=== PATIENT | female | born 2000 | race Caucasian/White ===

== ENCOUNTER 2019-06-23 08:14 | Observation (INO) | payer OTHER, SELFPAY ==
[2019-06-23] VITALS (9 sets, daily range): BP systolic 105–120; BP diastolic 64–83; PULSE 72–91; RESP 16–18; TEMP 36.2–36.6; O2SAT 96–100; BMI 29.7
--- NOTE | ~2019-06-23 | CT_ITS ---
EXAMINATION: CT pelvis w con INDICATION: Right lower quadrant pain, possible appendicitis TECHNIQUE: Computed tomographic images of the pelvis were obtained after the administration of 100 cc of Omnipaque 350 intravenous contrast. The dose-length product (DLP) was 278.36 mGy-cm. Automated ex posure control and iterative reconstruction technique were employed. COMPARISON: 06/23/2019 FINDINGS: The appendix measures up to 8 mm, not significantly changed since the comparison examinatio n. There is a trace amount of fluid near the tip of the appendix which could reflect inflammation or be physiologic in a reproductive age female. There are no dilated loops of bowel. No pathologically e nlarged pelvic lymph nodes are identified. IMPRESSION: 1. Findings equivocal for acute appendicitis. Reviewed, dictated and finalized at location A.
--- NOTE | ~2019-06-23 | CT_ITS ---
EXAMINATION: CT abdomen pelvis w con INDICATION: Right lower quadrant pain TECHNIQUE: Computed tomographic images of the abdomen and pelvis were obtained after the administrati on of 100 cc of Omnipaque 350 intravenous contrast. The dose-length product (DLP) was 352.09 mGy-cm. Automated exposure control and iterative reconstruction technique were employed. COMPARISON: None available FINDINGS: The lung bases are clear. The heart size is normal. The liver, spleen, pancreas, gallbladde r, and adrenal glands are normal. The kidneys are unremarkable. No pathologically enlarged abdominal or pelvic lymph nodes are identified. There is no free intraperitoneal gas or evidence of bowel obstr uction. The appendix measures approximately 8 mm at the base. No periappendiceal fat stranding is mike ntified. There is no periappendiceal fluid or abscess. The visualized osseous structures are unremark able. IMPRESSION: 1. Mild enlargement at the base of the appendix without identifiable periappendiceal fat stranding. F indings could reflect very early acute appendicitis. Reviewed, dictated and finalized at location B. IMPRESSION: 1. Mild enlargement at the base of the appendix without identifiable periappend iceal fat stranding. Findings could reflect very early acute appendicitis.
[2019-06-23 08:37] LABS: Basophils Percent Auto 0.3 % (0.2-1.2); Eosinophils Absolute Auto 0.1 K/mm3 (0-0.3); Eosinophils Percent Auto 0.8 % (0-4.4); Immature Granulocyte Absolute 0.04 K/mm3 (0.00-0.031); Immature Granulocyte Percent A 0.3 % (0-0.5); Lymphocytes Absolute Auto 3.16 K/mm3 (0.9-3.2); Mean Corpuscular HGB Conc 34.1 g/dl (32-36); Mean Corpuscular Hemoglobin 30.4 pg (26-34); Mean Corpuscular Volume 89.1 fl (80-100); Mean Platelet Volume 10.3 fl (7.4-10.4); Monocytes Absolute Auto 0.9 K/mm3 (0.1-0.6); Monocytes Percent Auto 7.8 % (2.6-8.5); Neutrophils Absolute Auto 7.5 K/mm3 (1.3-6.7); Neutrophils Percent Auto 63.8 % (45.5-73.1); Platelet Count Result 328 k/mm3 (150-375); Red Cell Distribution Width 11.9 % (11.5-14.5); White Blood Count 11.7 K/mm3 (4.5-10.0)
--- NOTE | 2019-06-23 08:40 | ED.ABDPAIN ---
HPI - Abdominal Pain General Chief Complaint: Abdominal Pain Stated Complaint: abd pain Time Seen by Provider: 06/23/19 08:20 History of Present Illness HPI narrative: 19 yo female w/ h/o HSV presents c/o RLQ pain since about 5 AM. The pain is cramp-like. No radiation. Moderate in intensity. Associated with 1 episodes of nausea, no vomiting. She is currently on her period, but states that this does not feel like normal menstrual cramps to her. No fever, diarrhea, constipation, previous surgery. Related Data Home Medications Medication Instructions Recorded Confirmed bupropion HCl [Wellbutrin XL] 150 mg PO QAM 06/23/19 06/23/19 valacyclovir 500 mg PO DAILY 06/23/19 06/23/19 Allergies Allergy/AdvReac Type Severity Reaction Status Date / Time Sulfa (Sulfonamide Allergy Mild migraine Verified 12/28/17 18:45 Antibiotics) and fever Review of Systems Review of Systems: All systems reviewed & are unremarkable except as noted in HPI and below Constitutional: Constitutional: Denies fever(s) Eyes: Eyes: Reports no additional eye complaints ENT: Reports system reviewed and no additional complaints, except as documented Cardiovascular: Cardiovascular: Denies chest pain Respiratory: Respiratory: Denies cough and Denies dyspnea Gastrointestinal: Gastrointestinal: Reports abdominal pain, Denies constipation, Denies diarrhea, Reports nausea and Denies vomiting Genitourinary: Genitourinary: Denies hematuria and Denies dysuria Musculoskeletal: Musculoskeletal: Denies back pain Neurologic: Denies dizziness and Denies weakness PMFSH Past Medical History Medical History (Updated 06/23/19 @ 12:15 by Alex Cameron MD) HSV infection Family History Family History (Updated 06/23/19 @ 12:02 by Eliana Enriquez RN) Father Diabetes mellitus Hypertension Social History Social History (Updated 06/23/19 @ 08:51 by Alex Cameron MD) Smoking status: Former smoker Tobacco type: e-cigarettes Alcohol intake: former Substance use: former Substance use type: marijuana Gender identity (if verbalized by the patient): Female Spiritual care concerns: No Agree to blood products: No Exam Const: General: healthy appearing, no acute distress and alert Nutritional Appearance: well nourished Orientation/consciousness: patient oriented x3 Limitations: no limitations HENMT: Head: normal to inspection Resp: Effort & Inspection: normal respiratory effort Auscultation: clear to auscultation bilaterally Cardio: Rate: regular rate Rhythm: regular rhythm GI: GI Palp: Yes Soft to palpation, Yes Tenderness to palpation present (GI) (Mild RLQ tenderness), No Guarding due to palpation present (GI) and No Rebound tenderness present Skin: General skin exam: normal color Rashes: no rashes Neuro: General: patient oriented x3 and moves all extremities Speech: normal speech Extrem: General: normal to inspection Psych: Appearance: grossly normal Mental Status: mental status grossly normal Affect: normal affect Thought content: Yes Normal thought content present Course Vital Signs Vital signs: Vital Signs Temperature 36.6 C 06/23/19 08:20 Pulse Rate 83 06/23/19 08:20 Respiratory Rate 16 06/23/19 08:20 Blood Pressure 113/83 06/23/19 08:20 Pulse Oximetry 100 06/23/19 08:20 Temperature 36.3 C L 06/23/19 11:59 Pulse Rate 89 06/23/19 11:59 Respiratory Rate 16 06/23/19 11:59 Blood Pressure 120/64 06/23/19 11:59 Pulse Oximetry 100 06/23/19 11:59 MDM - Abdominal Pain MDM Narrative Medical decision making narrative: She has relatively mild pain in the RLQ with minimal tenderness and no peritoneal signs. I feel appendicitis is unlikely. Will await lab results and reassess. Wbcs mildly elevated. Pain greatly improved, but continues to have RLQ tenderness. CT ordered. CT equivocal for appendicitis. Case discussed with Dr. Figueroa. He feels that observation or disc
[2019-06-23 08:44] LABS: Add Urine Microscopic? YES; Appearance Urine Clear (Clear); Bacteria Urine Trace /hpf; Bilirubin Urine Negative (Negative); Blood Urine 3+ (Negative); Color Urine Yellow (Yellow); Glucose Urine UA Negative (Negative); Ketones Urine Negative (Negative); Leukocyte Esterase Ur Negative LEU/UL (Negative); Mucus Urine Few /lpf; Nitrate Urine Negative (Negative); Protein Urine 1+ mg/dL (Negative); RBC Urine 0-2 /hpf (0-2); Specific Grav Ur 1.015 (1.001-1.035); Squamous Epithelial Cell Urine Many /hpf (Few); Urobilinogen Urine Negative mg/dL (<2.0)
[2019-06-23 08:52] LABS: Alanine Aminotransferase 10 U/L (4-35); Albumin Level 4.5 g/dL (3.5-5.1); Alkaline Phosphatase 28 U/L (38-126); Aspartate Amino Transferase 19 U/L (14-36); Bilirubin,Total 0.4 mg/dL (0.2-1.3); Blood Urea Nitrogen 8 mg/dL (7-17); Calcium 9.4 mg/dL (8.4-10.2); Carbon Dioxide 28 mmol/L (22-30); Chloride 105 mmol/L (98-107); Estimated CRCL calculation 88 ml/min; Estimated Glomerular Filt Rate > 60; Glucose 88 mg/dL (65-105); Lipase 62 U/L (23-300); Potassium 3.4 mmol/L (3.4-5.0); Sodium 140 mmol/L (137-145)
[2019-06-23] MEDS: KETOROLAC 30 MG/ML VIAL (*BKC) IV PUSH (08:52)
--- NOTE | 2019-06-23 09:36 | PC.NURSE ---
PT IN CT AT THIS TIME.
--- NOTE | 2019-06-23 11:34 | PC.NURSE ---
This patient, Alta Figueroa, was admitted to Medical Room 242-01. Patient/family oriented to hospital policies and general routines including ID bracelet, bed and alarms, visiting hours, pain management, procedures, bathroom and other care routines, personal items, smoking policy, room service/diet, and visiting hours. Valuables list has been completed. Information on how to activate the Rapid Response Team has been discussed. Patient/Family are encouraged to report perceived risks to care and to ask questions if they do not understand what they are told or what they should do.
[2019-06-23] MEDS: LACTATED RINGERS 1,000 ML 125 ML IV CONT (11:52)
--- NOTE | 2019-06-23 15:21 | PM.IMHP ---
H&P: HPI History of Present Illness Chief complaint: Possible appendicitis Narrative: Alta Figueroa is a 19 year old female with states that she was feeling in good health until early this morning. She states that she woke up out of sleep at around 5:00 a.m. with some right lower quadrant abdominal pain. She laid back down until 8:00 a.m. but had increasing pain so got up and moved around. She did not have anything to eat this morning before she came to the hospital. Workup in the emergency room showed that she had a slightly elevated white count and a CT scan showing a equivocal signs of appendicitis with the slightly dilated appendix more at the base and its tip. No other specific explanations for the abdominal pain. She is admitted now as an observation patient to serve for possibility of appendicitis. Review of Systems Constitutional: Constitutional: Reports as per HPI and Denies headache(s) Eyes: Eyes: Denies loss of vision and Denies eye pain ENT: Reports Normal hearing present, Denies change in voice, Denies dizziness and Denies headache(s) Cardiovascular: Cardiovascular: Denies chest pain and Denies dyspnea Respiratory: Respiratory: Denies dyspnea and Denies wheezing Gastrointestinal: Gastrointestinal: Reports abdominal pain, Denies diarrhea, Denies loose stools, Reports nausea and Denies vomiting Comments: Patient's typical pattern a bowel movements is 1 day or every other day. Genitourinary: Genitourinary: Denies sexual dysfunction Comments: Patient has been having somewhat irregular periods lately occurring every 3 weeks instead of the every 4. Typical daysof flow 5-6. Patient currently having her menstrual period. Musculoskeletal: Musculoskeletal: Denies back pain and Denies arthralgias Neurologic: Reports Normal hearing present, Denies dizziness, Denies headache(s), Denies loss of vision and Denies memory loss Psychiatric: Psychiatric: Denies memory loss and Denies panic attacks Endocrine: Endocrine: Reports no additional endocrine complaints Hematologic/Lymphatic: Hematologic/Lymphatic: Reports no additional hematologic/lymphatic complaints Allergic/Immunologic: Allergic/Immunologic: Denies wheezing PMFSH Past Medical History Medical History (Updated 06/23/19 @ 15:33 by Francis Figueroa MD) HSV infection Family History Family History (Updated 06/23/19 @ 12:02 by Eliana Enriquez RN) Father Diabetes mellitus Hypertension Social History Social History (Updated 06/23/19 @ 08:51 by Alex Cameron MD) Smoking status: Former smoker Tobacco type: e-cigarettes Alcohol intake: former Substance use: former Substance use type: marijuana Gender identity (if verbalized by the patient): Female Spiritual care concerns: No Agree to blood products: No Meds Home Medications and Allergies Home Medications Medication Instructions Recorded Confirmed Type bupropion HCl [Wellbutrin XL] 150 mg PO QAM 06/23/19 06/23/19 History valacyclovir 500 mg PO DAILY 06/23/19 06/23/19 History Allergies Allergy/AdvReac Type Severity Reaction Status Date / Time Sulfa (Sulfonamide Allergy Mild migraine Verified 12/28/17 18:45 Antibiotics) and fever Vital Signs Vital Signs - 24 hr 06/23/19 08:20 06/23/19 08:34 06/23/19 09:20 Temperature 36.6 C Pulse Rate 83 89 80 Respiratory Rate 16 18 18 Blood Pressure 113/83 119/73 115/82 Pulse Oximetry 100 99 98 06/23/19 11:05 06/23/19 11:25 06/23/19 11:59 Temperature 36.3 C L Pulse Rate 91 73 89 Respiratory Rate 16 16 16 Blood Pressure 107/68 107/68 120/64 Pulse Oximetry 96 99 100 06/23/19 14:00 Temperature 36.5 C Pulse Rate 80 Respiratory Rate 16 Blood Pressure 106/64 Pulse Oximetry 99 Exam Const: General: cooperative, no acute distress, well developed, alert and awake Nutritional Appearance: well nourished Orientation/consciousness: patient oriented x3 Limitations: no limitations HENMT: Head:
[2019-06-23] MEDS: polyethylene glycoL 3350 17 GM POWD.PACK PO (17:50)
[2019-06-23 19:17] LABS: Basophils Percent Auto 0.4 % (0.2-1.2); Eosinophils Absolute Auto 0.1 K/mm3 (0-0.3); Hematocrit 36.5 % (37.0-47.0); Hemoglobin 12.1 g/dL (12.0-15.0); Immature Granulocyte Absolute 0.01 K/mm3 (0.00-0.031); Immature Granulocyte Percent A 0.1 % (0-0.5); Lymphocytes Absolute Auto 2.23 K/mm3 (0.9-3.2); Lymphocytes Percent Auto 32.8 % (18.3-44.2); Mean Corpuscular HGB Conc 33.2 g/dl (32-36); Mean Corpuscular Hemoglobin 29.8 pg (26-34); Mean Corpuscular Volume 89.9 fl (80-100); Mean Platelet Volume 10.3 fl (7.4-10.4); Monocytes Absolute Auto 0.6 K/mm3 (0.1-0.6); Monocytes Percent Auto 8.2 % (2.6-8.5); Neutrophils Absolute Auto 3.9 K/mm3 (1.3-6.7); Neutrophils Percent Auto 57.5 % (45.5-73.1); Platelet Count Result 241 k/mm3 (150-375); Red Blood Count 4.06 M/mm3 (4.2-5.4); Red Cell Distribution Width 11.9 % (11.5-14.5); White Blood Count 6.8 K/mm3 (4.5-10.0)
[2019-06-23] MEDS: ACETAMINOPHEN 500 MG TABLET 1000 MG PO (20:50)
[2019-06-23] MEDS: LACTATED RINGERS 1,000 ML 50 ML IV CONT (22:23)
[2019-06-24] MEDS: LACTATED RINGERS 1,000 ML 125 ML IV CONT ×2 (00:18→05:54)
[2019-06-24 05:15] LABS: Basophils Percent Auto 0.4 % (0.2-1.2); Eosinophils Absolute Auto 0.1 K/mm3 (0-0.3); Eosinophils Percent Auto 1.5 % (0-4.4); Hematocrit 35.6 % (37.0-47.0); Immature Granulocyte Absolute 0.01 K/mm3 (0.00-0.031); Immature Granulocyte Percent A 0.2 % (0-0.5); Lymphocytes Absolute Auto 2.89 K/mm3 (0.9-3.2); Lymphocytes Percent Auto 55.2 % (18.3-44.2); Mean Corpuscular HGB Conc 33.7 g/dl (32-36); Monocytes Absolute Auto 0.5 K/mm3 (0.1-0.6); Monocytes Percent Auto 9.2 % (2.6-8.5); Neutrophils Absolute Auto 1.8 K/mm3 (1.3-6.7); Neutrophils Percent Auto 33.5 % (45.5-73.1); Platelet Count Result 247 k/mm3 (150-375); Red Cell Distribution Width 11.8 % (11.5-14.5); White Blood Count 5.2 K/mm3 (4.5-10.0)
[2019-06-24 05:27] LABS: Blood Urea Nitrogen 6 mg/dL (7-17); Calcium 8.8 mg/dL (8.4-10.2); Carbon Dioxide 27 mmol/L (22-30); Chloride 108 mmol/L (98-107); Estimated CRCL calculation 104 ml/min; Estimated Glomerular Filt Rate > 60; Glucose 85 mg/dL (65-105); Potassium 4.2 mmol/L (3.4-5.0); Sodium 139 mmol/L (137-145)
[2019-06-24 05:44] VITALS: BP 93/54; PULSE 73; RESP 16; TEMP 36.1; O2SAT 100
[2019-06-24] MEDS: IBUPROFEN 600 MG TABLET PO (12:50)
[2019-06-24 12:56] LABS: Add Urine Microscopic? YES; Appearance Urine Clear (Clear); Bilirubin Urine Negative (Negative); Blood Urine 3+ (Negative); Color Urine Straw (Yellow); Glucose Urine UA Negative (Negative); Ketones Urine Trace mg/dL (Negative); Leukocyte Esterase Ur Negative LEU/UL (Negative); Nitrate Urine Negative (Negative); Protein Urine Negative (Negative); RBC Urine 0-2 /hpf (0-2); Squamous Epithelial Cell Urine Many /hpf (Few); Urobilinogen Urine Negative mg/dL (<2.0); WBC Urine 0-3 /hpf
[2019-06-24 12:58] LABS: Specific Grav Ur 1.043 (1.001-1.035)
[2019-06-24 14:00] VITALS: BP 101/71; PULSE 82; RESP 16; TEMP 36.6; O2SAT 100
--- NOTE | 2019-06-24 14:22 | PM.DS ---
DS: Diagnosis Admitting Diagnosis Admitting Diagnosis: Right lower quadrant pain DS: Summary Hospital Course Reason for hospitalization: Right lower quadrant pain. Patient was placed under observation in case she developed appendicitis. Did not appear that she did. Her diet was advanced and she was able to be discharged the day following admission. Hospital Course: Hospital course was fairly unremarkable. Patient's pain improved some degree it was treated with oral pain medication. Repeat labs revealed no significant elevation of the white count. Urinalysis was somewhat improved and not suggestive of a urinary tract infection. Repeat CT scan of the area of the appendix was performed 24 hours after the original showing no further developments suggestive of appendicitis. Since this was most likely gastroenteritis or some UTI or gynecologic problem was felt that the patient could go home on pain medication. She tolerated a soft diet prior to discharge. Status at Discharge Cognitive/behavioral status at discharge: Patient seemed to be in good control of her emotions and mental status. She was up walking in the halls without difficulty. Functional status at discharge: independent ambulation Overall status at discharge: patient is not back to baseline ( Still has some abdominal pain otherwise getting back to normal.) Time Spent with Patient Time attestation: Total time spent providing and/or coordinating discharge services: Time spent: Less than 30 minutes Specific discharge activities: patient should Gras a resume usual activities. She should start with a soft diet and gradually advanced to her usual diet. She could return to work in the next few days if feeling well. 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 Exam Const: General: cooperative, no acute distress, alert and awake Orientation/consciousness: patient oriented x3 HENMT: Mouth: Yes moist mucous membranes Neck: Neck: normal visual inspection Chest: Chest palpation & inspection: normal inspection of the chest Resp: Effort & Inspection: normal respiratory effort Auscultation: clear to auscultation bilaterally Cardio: Jugular venous distension: no JVD Rate: regular rate Rhythm: regular rhythm GI: Inspection: normal to inspection GI Palp: Yes Tenderness to palpation present (GI) ( Remains mildly tender with palpation in the right lower and mid abdomen. ), No Hernia present and No Palpable mass present Auscultation: normal bowel sounds Rectal Exam: deferred Other: No tenderness elsewhere in the abdomen to palpation. Neuro: General: patient oriented x3 and moves all extremities Speech: normal speech Extrem: General: normal exam except as noted Psych: Mental Status: mental status grossly normal Speech and movement: Normal speech and movement present Affect: normal affect Thought content: Yes Normal thought content present DS: Data Data Completed and Pending Labs on day of discharge: Labs from last 24 hours 06/24/19 06/24/19 06/24/19 12:42 04:49 04:49 WBC 5.2 RBC 4.00 L Hgb 12.0 Hct 35.6 L MCV 89.0 MCH 30.0 MCHC 33.7 RDW 11.8 Plt Count 247 MPV 10.0 Immature Gran % (Auto) 0.2 Neut % (Auto) 33.5 L Lymph % (Auto) 55.2 H [place] % (Auto) 9.2 H Eos % (Auto) 1.5 Baso % (Auto) 0.4 Lymph # (Auto) 2.89 [place] # (Auto) 0.5 Eos # (Auto) 0.1 Baso # (Auto) 0.0 Abs Immat Gran (auto) 0.01 Absolute Neuts (auto) 1.8 Absolute Nucleated RBC 0.0 Nucleated RBC % 0.0 Sodium 139 Potassium 4.2 Chloride 108 H Carbon Dioxide 27 BUN 6 L Creatinine 0.70 Estim Creat Clear Calc 104 Estimated GFR > 60 Glucose 85 Calcium 8.8 Urine Color Straw Urine Appearance Clear Urine pH 7.0 Ur Specific Elbe 1.043 H Urine Protein Negative Urine
== END 2019-06-24 16:04 | disposition home or self-care (01) ==
LOC: ANHED 10:58 → ANH2MED 11:05
PROVIDERS: Admitting Provider Surgery; Emergency Provider Emergency Medicine; PCP Family Medicine; Visit Provider Surgery
DX: R10.31 Right lower quadrant pain (principal); N92.0 Excessive and frequent menstruation with regular cycle; Z79.899 Other long term (current) drug therapy; Z86.19 Personal history of other infectious and parasitic diseases; Z88.2 Allergy status to sulfonamides
CPT/HCPCS: 36415; 72193; 74177; 80048; 80053; 81001; 81025; 83690; 85025; 96360; 96361; 96374; 99285; A9270; G0378; J1885; J7120; Q9967

== ENCOUNTER 2024-08-02 11:37 | Emergency (ER) | payer OTHER, SELFPAY ==
--- NOTE | ~2024-08-02 | XR_ITS ---
HISTORY: finger pain X 1 WEEK COMPARISON: None TECHNIQUE: 2 views of the right second digit were performed FINDINGS: No acute or subacute fracture. Joint spaces are preserved and alignment is maintained. Soft tissues are unremarkable without foreign body or significant calcification. Age-appropriate mineralization. IMPRESSION: Unremarkable radiographic evaluation of the right second digit, as detailed above. Reviewed, dictated and finalized at location A.
--- OUTSIDE RECORDS SUMMARY | 2024-08-02 11:39 | XMS_ITS | Continuity of Care Document ---
Author Organization [facility] Address [id number] [place] [id number] Phone Care Team Providers Care Field Service Coordinator Name Role Phone Conversion MD, Doctor Unavailable Unavailabl e Medications Medication Instructions Dosage Effective Dates (start - stop) Status Comments VERAMYST 27.5 MCG NASAL SPRAY 1 QD-daily - Active Advance Directives Directive Yes / No Effective Date File Name No Information Encounters Encounter Description Practice Location Reason(s) For Visit Diagnoses Date Provider Providers Copied on Encounter [facility], [address], [place], [place], [id number], tel:[phone] Conversion Department No Information Conversion Doctor. [address] [place] [address], [facility], . [facility], [id number] [place] [address], [id number], tel:[phone] [facility] CHRONIC RHINITIS Henry Moreland. [address] [place] [address], [id number], . tel:[phone] [facility], [id number] [place] [address], [id number], tel:[phone] [facility] CHR MAXILLARY SINUSITIS 5 Conversion Doctor. [address] [place] [address], [facility], . Family History Family Member Type Diagnosis Age At Onset No Information Payers Payer name Insurance type Covered alliance party ID Authoriza tion(s) No Information Social History Type Description Quantity Date Captured Comments Sex Female Smoking Status No Information Chief Complaint And Reason For Visit No Information Reason For Referral Reason For Referral No Information History Of Present Illness Encounter Date Complaint History Of Prese nt Illness No Information Functional Status Date Functional Assessmen t No Information Instructions Date Instruction Additional Infor mation No Information Assessments Type Assessment Date No Information Patient Care Teams Name Effective Dates (start - stop) Status Members No Information
--- OUTSIDE RECORDS SUMMARY | 2024-08-02 11:39 | XMS_ITS | Clinical Summary ---
Author Organization [facility] Address [address] [place] [address] Care Team Providers Care Slasher Hand Name Role Phone Les Sloan MD Primary Care Provider [phone] Allergies Active Allergy Reactions Criticality Noted Date Comments Sulfa (Sulfonamide Antibiotics) Headache Low 08/2018 Medications etonogestrel (NEXPLANON) 68 mg implant insertion 0 0 6 Active Additional Information Patient not taking.Reported on 11/09/2021 adapalene-benzoy l peroxide 0.1-2.5 % gel with pump Apply topically. 5 Active sertraline (ZOLOFT) 100 mg tabletIndication s:depression Take 1.5 tablets (150 mg total) by mouth daily. 135 tablet 8 Active Additional Information Patient not taking.Reported on 2022 ondansetron (ZOFRAN) 4 mg tablet Take 1 tablet (4 mg total) by mouth every 6 (six) hours as needed for nausea . 15 tablet 9 Active Additional Information Patient not taking.Reported on 2022 buPROPion XL (WELLBUTRIN XL) 150 mg 24 hr tablet TK 1 T PO QD IN THE MORNING 0 8 Active VIENVA 0.1-20 mg-mcg per tablet Take 1 tablet by mouth daily 1 9 Active gabapentin (NEURONTIN) 100 mg capsuleIndicatio ns:Upper respiratory tract infection, unspecified type 0 Active valACYclovir (VALTREX) 500 mg tablet Take 1 tablet (500 mg total) by mouth daily 3 Active Active Problems Problem Noted Date Diagnosed Date Refused influenza vaccine 2018 Moderate single current epis ode of major depressive disorder 05/06/2017 Anxiety 01/22/2017 Acute pharyngitis 02/14/2016 Overview (06/14/2016): Acute pharyngitis, unspecified etiology Heartburn 07/22/2015 Overview (06/15/2016): Heartburn Migraine without aura and responsive to treatmen t 03/18/2015 Overview (06/15/2016): Common migraine, not intractable Migraine 03/27/2012 Non-allergic rhinitis 03/27/2012 Immunizations Immunization Administration Dates Next Due DTaP 08/11/2004, 1,05/23/2000,09/28,1999 Hep A, Pediatric 06/15/2011,06/26/2010 Hep B, Adolescent or Pediatric 05/23/2000,1999,1999 Hib (PRP-D) 12/03/2000, 1,1999,07/17 IPV 08/11/2004, 1,1999,07/17 Influenza Nasal, Unspecified 03/27/2012 Influenza, Quadrivalent, Spl it, Preservative Free, Intramuscular 04/09/2016 Influenza, Unspecified 2018(Deferr ed: Patient Refused),01/03/2018(Deferred: Patient Refused),03/18/2017(Deferred: Patient Refused),03/11/2017(Deferred: Patient Refused) MMR 08/11/2004,2000 Meningococcal MCV4P (Menactra) 06/15/2011 PPD TEST 08/11/2004,2000 Pneumococcal Conjugate, Unspecified 2000 Tdap 06/26/2010 Varicella 06/26/2010,09/02/2000 Surgical History Surgery Date Site/Laterality Comments NO PAST SURGERIES Medical History Medical History Date Comments No known health problems Family History Medical History Relation Name Comments No Known Problems Father pre diabetes Father No Known Problems Mother Relation Name Status Comments Father Alive Mother Alive Social History Tobacco Use Types Packs/Day Years Used Date Smoking Tobacco: Former Cigarettes 0.3 0.5 0 09/09/2021 - 03/11/2022 Smokeless Tobacco: Never Tobacco Cessation:Counseling Given: Yes Alcohol Use Standard Drinks/Week Comments No 0 (1 standard drink = 0.6 oz pur e alcohol) PHQ-2 Answer Date Recorded PHQ-2 Score 0 11/01/2018 Personal Safety Answer Date Recorded Getting School Help Needed Not on file 05/10 Comments No Sex and Gender Information Value Date Recorded Sex Assigned at Not on file 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 Gender Identity Not on file Sexual Orientation Not on file Obstetrics History Last Filed Vital Signs Vital Sign Reading Time Taken Comments Blood Pressure 92/58 11/13/2022 12:17 PM CDT Pulse 79 11/13/2022 12:17 PM CDT Temperature 37 C (98.6 F) 11/13/2022 12:17 PM CDT Respiratory Rate 23 11/13/2022 12:17 PM CDT Oxygen Saturation 100% 11/13/2022 12:17 PM CDT Inhaled Oxygen Concentration - - Weight 68 kg (150 lb) 11/13/2022 12:17 PM CDT Height 157.5 cm (5' 2 ) 11/13/2022 12:17 PM CDT Body Mass Index 27.44 11/13/2022 12:17 PM CDT Plan of Treatment Health Maintenance Due Date Last Done Comments Cervical Cancer Screening 1999 Hepatitis C Screening 1999 HPV Vaccines (1 - 3-dose series) 05/15/2014 Regular Well Visit/Exam 18-64 05/15/2017 Depression Screening 05/17/2019 2018, 2018, 01/03/2018, Additional history exists DTaP/Tdap/Td Vaccine (7 - Td or Tdap) 06/26/2020 06/26/2010, 08/11/2004, 12/03/2000, Additional history exists Influenza Vaccine (Season Ended) 2024 12/05/2016, 04/09/2016, 03/27/2012, Additional history exists Pneumococcal vaccine <65 Aged Out 2000 No longer eligible based on patient's age to complete this topic Hepatitis B Screening Completed 05/23/2000 , 1999, 1999, Additional history exists Varicella Vaccines Completed 06/26/2010, 09/02/2000 Insurance [facility] PLUS [facility] H[facility]/PPO Address: [address] [place] [address] [facility] CHOICE PLUS [facility]/PPO Address: [address] [place] [address] Care Teams Slasher Hand Relationship Specialty Start Date End Date Les Sloan MD [address] [place] [address] [facility] - General 06/08/16
--- OUTSIDE RECORDS SUMMARY | 2024-08-02 11:39 | XMS_ITS | Referral Summary ---
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 Gender Identity Not on file Sexual Orientation Not on file Last Filed Vital Signs Vital Sign Reading [...] 11/13/2022 12:17 PM CDT Plan of Treatment Not on file Insurance [facility]PPO Address: [facility] [address] [place] [address] [facility]/PPO Address: [facility] [address] [place] [address] Care Teams Outsole Skiver Relationship Specialty Start Date End Date Les Sloan MD [address] [place] [address] PCP - General 06/08/16
[2024-08-02 11:48] VITALS: BP 110/68; PULSE 71; RESP 16; TEMP 36.4; O2SAT 99
[2024-08-02 11:58] VITALS: RESP 17
--- OUTSIDE RECORDS SUMMARY | 2024-08-02 12:04 | XMS_ITS | Referral Summary ---
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
--- OUTSIDE RECORDS SUMMARY | 2024-08-02 12:05 | XMS_ITS | Continuity of Care Document ---
Author Organization [facility] Address [id number] [place] [phone] Phone Care Team Providers Care Veterinary Medicine Doctor Name Role Phone Conversion MD, Doctor Unavailable Unavailabl e Medications Medication Instructions Dosage Effective Dates (start - stop) Status Comments VERAMYST 27.5 MCG NASAL SPRAY 1 QD-daily - Active Advance Directives Directive Yes / No Effective Date File Name No Information Encounters Encounter Description Practice Location Reason(s) For Visit Diagnoses Date Provider Providers Copied on Encounter [facility], [address], [place], [place], [id number], tel:[phone] Conversion Department No Information Conversion Doctor. [address] [place] [address], [facility], . [facility], [id number] [place] [address], [id number], tel:[phone] [facility]RON[facility] RHINIT[facility] Henry Moreland. [address] [place] [address], [id number], . tel:[phone] [facility], [id number] [place] [address], [id number], tel:[phone] [facility] CHR MAXILLARY SINUSITIS 5 Conversion Doctor. [address] [place] [address], [facility], . Family History Family Member Type Diagnosis Age At Onset No Information Payers Payer name Insurance type Covered libertarian ID Authoriza tion(s) No Information Social History [...]
--- OUTSIDE RECORDS SUMMARY | 2024-08-02 12:05 | XMS_ITS | Clinical Summary ---
Author Organization [facility] Address [address] [place] [address] Care Team Providers Care Bsa/Aml Compliance Officer Name Role Phone Les Sloan MD Primary Care Provider [phone] Allergies Active Allergy Reactions Criticality Noted Date [...] on file Legal Sex Female 3:56 AM [employer]XIDIZED [employer] Gender Identity Not on file Sexual Orientation [...] exists Varicella Vaccines Completed 06/26/2010, 09/02/2000 Insurance [facility]O Address: [address] [place] [address] [facility] PL[facility] H[facility]/PPO Address: [address] [place] [address] Care Teams Bsa/Aml Compliance Officer Relationship Specialty Start Date End Date Les Sloan MD [address] [place] [address] [facility] - General 06/08/16
--- NOTE | 2024-08-02 12:43 | ED.GENADULT ---
HPI - General Adult General Chief complaint: Unspecified Stated complaint: finger numbness Time Seen by Provider: 08/02/24 11:57 History of Present Illness HPI narrative: 24-year-old female presents to the emergency department for evaluation for pain in her 2nd right finger at the PIP joint. 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 Patient states that she has had intermittent pain at the PIP and does have intermittent numbness of that finger. Patient denies any other pain or injury. Patient has taking a single dose of ibuprofen daily without significant improvement in results. Related Data Home Medications ?Medication ?Instructions ?Recorded ?Confirmed ?Last Taken ?Type bupropion HCl 150 mg 24 hr tablet, 150 mg PO QAM 06/23/19 06/23/19 1 Day Ago History extended release (Wellbutrin XL) ~06/22/19 valacyclovir 500 mg tablet 500 mg PO DAILY 06/23/19 06/23/19 1 Day Ago History ~06/22/19 Allergies Allergy/AdvReac Type Severity Reaction Status Date / Time Sulfa (Sulfonamide Allergy Mild migraine Verified 08/02/24 12:00 Antibiotics) and fever Review of Systems Review of Systems: All systems reviewed & are unremarkable except as noted in HPI and below PMFSH Past Medical History Medical History (Updated 08/02/24 @ 13:29 by Nando Carcamo MD) HSV infection Family History Family History (Updated 06/23/19 @ 12:02 by Eliana Goode RN) Father Diabetes mellitus Hypertension Social History Social History (Updated 06/23/19 @ 08:51 by Alex Cameron MD) Smoking status: Former smoker Tobacco type: e-cigarettes/vaping Alcohol intake: former Substance use: former Substance use type: marijuana Gender identity (if verbalized by the patient): Female Spiritual care concerns: No Agree to blood products: No Exam Narrative: APPEARANCE: Well appearing, no pain, no distress, well-nourished. HEAD: normocephalic, atraumatic. EYES: PERRLA/EOMI, conjunctivae clear. NOSE: Normal no drainage RESPIRATORY: Airway patent, respirations nonlabored. Clear to auscultation bilaterally, no rales, rhonchi, wheezing. CARDIOVASCULAR: Regular rate and rhythm without murmurs rubs or gallops. ABDOMINAL: Soft, nontender, nondistended, normal bowel sounds MUSCULOSKELETAL: Moves all extremities. Strength/ROM intact, No edema, No calf tenderness. NEURO: Alert. Cranial nerves II through XII intact. Good gait. Good coordination SKIN: Warm, dry. Normal Color. Finger as not cool to touch and has adequate cap refill and normal strength and segments of the finger Course Vital Signs Vital signs: Vital Signs Temperature 97.6 F 08/02/24 11:48 Pulse Rate 71 08/02/24 11:48 Respiratory Rate 16 08/02/24 11:48 Blood Pressure 110/68 08/02/24 11:48 Pulse Oximetry 99 08/02/24 11:48 Oxygen Delivery Room Air 08/02/24 11:48 Temperature 97.6 F 08/02/24 11:48 Pulse Rate 71 08/02/24 11:48 Respiratory Rate 17 08/02/24 11:58 Blood Pressure 110/68 08/02/24 11:48 Pulse Oximetry 99 08/02/24 11:48 Oxygen Delivery Room Air 08/02/24 11:48 Medical Decision Making MDM Narrative Medical decision making narrative: 24-year-old female presented to the emergency department for evaluation for intermittent paresthesias of her right 2nd finger. Patient has strong cap refill and no abnormalities on the x-ray. Suspected injury secondary to overuse. Patient was provided a finger splint for comfort and patient was provided naproxen for anti inflammation. Patient was also provided outpatient follow-up with hand surgery Differential Diagnosis Differential Diagnosis: For infection, finger contusion, finger fracture, paresthesia Vital Signs Vital Signs: Vital Signs Temperature 97.6 F 08/02/24 11:48 Pulse Rate 71 08/02/24 11:48 Respiratory Rate 16 08/02/24 11:48 Blood Pressure 110/68 08/02/24 11:48 Pulse Oximetry 99 08/02/24 11:48 Oxygen Delivery Room Air 08/02/24 11:48 Temperature 97.6 F 08/02/24 11:48 Pulse Rate 71 08/02/24 11:48 Respiratory Rate 17 08/02/24 11:58 Blood Pressure 110/68 08/02/24 11:48 Pulse Oximetry 99 08/02/24 11:48 Oxygen Delivery Room Air 08/02/24 11:48 Imaging Data Radiologist's impression: Impressions Finger X-Ray 08/02/24 13:20 IMPRESSION: Unremarkable radiographic evaluation of the right second digit, as detailed above. Discharge Plan Discharge Clinical Impression: Paresthesia of finger Patient Disposition: Home Condition: Stable Instructions: Antibiotic Form Additional Instructions: Wear finger splint as directed. Have close follow-up with Hand surgery. Try to limit activities that could lead to an overuse injury. Naproxen as directed. Patient Language: Nicarag[place] Prescriptions: New naproxen 500 mg tablet 500 mg PO BID PRN (Reason: pain) 7 Days Qty: 14 0RF No Action valacyclovir 500 mg Tablet 500 mg PO DAILY bupropion HCl [Wellbutrin XL] 150 mg Tablet Extended Release 24 Hr 150 mg PO QAM hydrocodone-acetaminophen 5-325 mg Tablet 1 tab PO Q6H PRN (Reason: Pain Rated 4-6) Qty: 7 0RF Follow-up/Referrals: Ruben Madden MD [Physician] - PHYSICIAN,TIMBER HEWER [Primary Care Provider] -
== END 2024-08-02 13:38 | disposition home or self-care (01) ==
PROVIDERS: Emergency Provider Emergency Medicine
DX: R20.2 Paresthesia of skin (principal); Z87.891 Personal history of nicotine dependence
CPT/HCPCS: 29130; 73140; 99283